=== PATIENT | male | born 1950 | race Caucasian/White ===

== ENCOUNTER → 2022-04-07 13:03 | Outpatient (CLI) | payer MEDICARE, SELFPAY ==
--- NOTE | 2022-04-07 13:09 | DI.MRI.S_ITS ---
PROCEDURE: MR KNEE RT WO CON INDICATIONS: Unilateral primary osteoarthritis, right knee TECHNIQUE: Noncontrast sagittal PD fast spin echo and T2 fast spin echo with fat saturation, sagittal 3-D FLASH with fat saturation; coronal T1 spin echo and PD fast spin echo with fat saturation, and axial PD fast spin echo with fat saturation through the knee. COMPARISON: None. FINDINGS: Image quality: Excellent. Menisci: Peripheral displacement of medial meniscus bowing medial collateral ligament is seen. Complex oblique tear involving posterior horn of medial meniscus is seen extending to inferior articulating surface. There is a 6 mm Licha meniscal cyst adjacent to posterior horn. Complex tear also noted involving anterior horn of lateral meniscus extending to both superior and inferior articulating surfaces. The meniscal root ligaments appear intact. Cruciate ligaments: The anterior cruciate ligament is thickened with intrasubstance T2 hyperintense signal. No ACL rupture. PCL is intact. Medial structures: There is low-grade MCL sprain. The posterior oblique ligament, semimembranosus tendon insertions, oblique popliteal ligament, and meniscocapsular junction appear intact. Visualized portions of the pes anserinus tendons appear normal. No abnormal bursal fluid. Lateral structures: The lateral collateral ligament, long and short heads of the biceps femoris tendon appear intact. The popliteus tendon appears normal; the popliteofibular ligament appears intact. Iliotibial band appears normal. Anterior structures: Distal quadriceps tendinosis and low-grade partial-thickness tear is seen. Patellar tendon is intact. Patellar alignment is normal. No femoral trochlear dysplasia or ventral trochlear prominence. No edema in the infrapatellar fat pad. Bones and cartilage: No bone marrow contusions or fractures. [id number] tricompartmental osteoarthritis and chondromalacia is noted. Joint space: There is small amount of joint fluid. No Arzola's cyst. Normal appearing synovial plicae are incidentally noted. IMPRESSION: 1. Complex tear involving posterior horn of medial meniscus extending to inferior articulating surface with adjacent Licha meniscal cyst as above. Complex tear also noted involving anterior horn of lateral meniscus extending to both superior and inferior articulating surfaces. 2. 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 No ACL rupture. PCL is intact. 3. Low-grade MCL sprain. 4. Distal quadriceps tendinosis and low-grade partial-thickness tear at its superior patellar insertion. Patellar tendon is intact. 5. [id number] tricompartmental osteoarthritis and chondromalacia. No fracture or dislocation. Small joint effusion, no gross loose bodies. Dictated by: Willie Frank M.D. on 04/07/2022 at 16:05 Approved by: Willie Frank M.D. on 04/07/2022 at 16:12
== END ==
PROVIDERS: PCP Family Medicine; Referring Provider Orthopaedic Surgery; Visit Provider Orthopaedic Surgery
DX: M17.11 Unilateral primary osteoarthritis, right knee (principal); S83.231A Complex tear of medial meniscus, current injury, right knee, initial encounter; S83.271A Complex tear of lateral meniscus, current injury, right knee, initial encounter; S83.411A Sprain of medial collateral ligament of right knee, initial encounter; M94.261 Chondromalacia, right knee
CPT/HCPCS: 73721

== ENCOUNTER → 2024-06-23 11:21 | Outpatient (CLI) | payer MEDICARE, SELFPAY ==
--- NOTE | 2024-06-23 12:02 | EKG_ITS ---
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
[2024-06-23 12:51] LABS: Hemoglobin A1C% w Est Avg Glu 6.8 % (4.0-6.0)
[2024-06-23 13:10] LABS: Add Manual Diff / Slide Review NO; Basophils Absolute Auto 0 /uL (0-100); Basophils Percent Auto 0.8 % (0-2); Eosinophils Absolute Auto 400 /uL (0-450); Eosinophils Percent Auto 7.4 % (2-4); Hematocrit 41.9 % (41-53); Hemoglobin 14.4 g/dL (13.5-17.5); Lymphocytes Absolute Auto 1600 /uL (1100-4500); Lymphocytes Percent Auto 30.8 % (25-40); Mean Corpuscular HGB Conc 34.2 % (30-36); Mean Corpuscular Hemoglobin 31.5 PG (26-34); Mean Corpuscular Volume 92.1 fL (80-100); Monocytes Absolute Auto 400 /uL (0-900); Monocytes Percent Auto 7.2 % (3-14); Neutrophils Absolute Auto 2800 /uL (1500-7000); Neutrophils Percent Auto 53.8 % (50-75); Platelet Count 186 X10^3/uL (150-400); Red Blood Cell Count 4.55 X10^6/uL (4.5-5.9); Red Cell Distribution Width 13.8 % (11.6-14.8); White Blood Cell Count 5.2 X10^3/uL (4.5-11.0)
[2024-06-23 13:35] LABS: BUN Creatinine Ratio 18.9 (6-22); Blood Urea Nitrogen 14 mg/dL (9-20); Calcium 9.3 mg/dL (8.4-10.2); Carbon Dioxide 29 mmol/L (22-32); Chloride 102 mmol/L (98-107); Estimated Glomerular Filt Rate > 60 mL/min (>60); Glucose 127 mg/dL (80-110); HEMOLYSIS < 15 (0-50); Potassium 4.2 mmol/L (3.4-5.1); Sodium 138 mmol/L (137-145)
[2024-06-23 13:52] LABS: Appearance Urine UA CLEAR; Bilirubin Urine UA NEGATIVE (NEGATIVE); Color Urine UA YELLOW; Glucose Urine UA NEGATIVE (Negative); Ketones Urine UA NEGATIVE (NEGATIVE); Leukocyte Esterase Urine UA NEGATIVE (NEGATIVE); Nitrite Urine UA NEGATIVE (Negative); Occult Blood Urine UA TRACE-INTACT (Negative); Protein Urine UA NEGATIVE (Negative); Specific Gravity Urine UA >=1.030 (1.000-1.035); Urobilinogen Urine UA 0.2 E.U./dL (0.2)
[2024-06-23 13:57] LABS: Urine Volume 10mL (spun)
[2024-06-23 13:58] LABS: Bacteria Urine None Seen; RBC Urine 0-1/HPF (0-5/HPF); Squamous Epithelial Cell Urine 1-5 /HPF (0-5/HPF); WBC Urine None Seen (0-5/HPF)
[2024-06-23 13:59] LABS: Calcium Oxalate Crystals Urine Few; Culture Indicated Urine Cult Not Indicated
[2024-06-24 07:09] LABS: Fructosamine 268 umol/L (0-285)
== END ==
LOC: LAB 11:22
PROVIDERS: PCP Family Medicine; Referring Provider Orthopaedic Surgery; Visit Provider Orthopaedic Surgery
DX: Z01.818 Encounter for other preprocedural examination (principal); R73.9 Hyperglycemia, unspecified; Z01.812 Encounter for preprocedural laboratory examination; N39.0 Urinary tract infection, site not specified; E74.9 Disorder of carbohydrate metabolism, unspecified
CPT/HCPCS: 36415; 80048; 81001; 82985; 83036; 85025; 93005